=== PATIENT | female | born 1990 | race Two or more races ===

== ENCOUNTER 2020-01-27 06:40 | Emergency (ER) | payer OTHER ==
[~2020-01-27] VITALS: Ht 152.4 cm; Wt 50.8 kg
[2020-01-27] MEDS ORDERED: MUCINEX DM ER1 EAC1 PO (15:04)
[2020-01-27] MEDS ORDERED: AIRBORNE EFFER1 EACH PO (15:04)
[2020-01-27] MEDS ORDERED: TESSALON PERLE100 M1 PO (15:04)
[2020-01-27] MEDS ORDERED: OSEL75CA PO (15:04)
== END 2020-01-27 16:25 | disposition home or self-care (01) ==
LOC: ER 06:40
DX: J10.1 Influenza due to other identified influenza virus with other respiratory manifestations (principal); N39.0 Urinary tract infection, site not specified; B34.9 Viral infection, unspecified; Z03.818 Encounter for observation for suspected exposure to other biological agents ruled out

== ENCOUNTER 2021-01-11 13:30 | Outpatient (CLI) | payer OTHER ==
[~2021-01-11 13:30] MED LIST: AIRBORNE EFFER1 EACH PO; MUCINEX DM ER1 EAC1 PO; OSEL75CA PO; TESSALON PERLE100 M1 PO
== END 2021-01-11 14:00 | disposition home or self-care (01) ==
LOC: PPH VACUNA 13:30
PROVIDERS: ATTEND Emergency Medicine Pediatric Emergency Medicine
DX: Z23 Encounter for immunization (principal)